=== PATIENT | male | born 1995 | race African-American/Black ===

== ENCOUNTER 2021-07-15 13:30 | Emergency (ER) | payer MEDICAID ==
[~2021-07-15] VITALS: Ht 175.3 cm; Wt 84.0 kg
[2021-07-15 13:36] VITALS: BP 132/94
== END 2021-07-15 22:04 | disposition left against medical advice (07) ==
LOC: ER 13:48
DX: Z53.21 Procedure and treatment not carried out due to patient leaving prior to being seen by health care provider (principal); I10 Essential (primary) hypertension
CPT/HCPCS: 93005